=== PATIENT | male | born 1945 | race Caucasian/White ===

== ENCOUNTER 2016-12-30 07:08 | Day surgery (SDC) | payer MEDICARE ==
[~2016-12-30] VITALS: Ht 177.8 cm; Wt 86.6 kg
[~2016-12-30 07:08] MED LIST: ASPI325T32 PO; HYDR25TA4 PO; LIP40 PO; LOSA100T29 PO; Lactated Ringer's 1,000 ML IV ONE; METO-274 PO; SILO8CAP PO
[2016-12-30] MEDS ORDERED: Propofol 10,000 mCg/mL 20 mL Inj ONE (07:09)
[2016-12-30] MEDS ORDERED: Lidocaine PF 1% 30 mL Inj ONE (07:09)
[2016-12-30 07:33] VITALS: BP 152/86; PULSE 60; RESP 14; O2SAT 97
[2016-12-30] MEDS ORDERED: OMEP20TA24 PO (07:39)
[2016-12-30] MEDS ORDERED: Ondansetron 2 mg/mL 2 mL Inj IVPUSH PRN (07:55)
[2016-12-30] MEDS ORDERED: MetoCLOpramide 5 mg/mL 2 mL Inj IVPUSH PRN (07:55)
[2016-12-30] MEDS ORDERED: Lactated Ringer's 1,000 ML IV SCH (07:55)
--- NOTE | 2016-12-30 07:55 | PCM.HPANE ---
Patient Data Date of Service: Dec 30, 2016 Surgeon Admitting Provider: Attending Provider:Sushant Drummond MD Primary Care Physician:Fabian Pham MD Other Provider:Megan Hernandez Anesthesia Reason for Visit Fhx Colon Cancer Ht/WT & BMI Height (Feet): 5 Height (Inches): 10 Weight (Kilograms): 86.64 Body Mass Index 27.00 Allergies Coded Allergies: No Known Allergies (Unverified , 12/29/16) Past Anesthesia History Anesthesia History: Denies:: Abnormal Airway, Anesthesia Reactions, Difficult Intubation, Fam Anesthesia Reaction, Fam Malignant Hypertherm, Malignant Hyperthermia Diabetes History Hx Diabetes?: No MRSA MRSA: No Medications Blood Thinner: Aspirin Last Dose Blood Thinner: Dec 29, 2016 Home Meds Incl Beta Ricardo: Yes Date Beta Ricardo Taken: Dec 30, 2016 Time Beta Ricardo Taken: 0600 Reported Medications Omeprazole Magnesium (Prilosec Otc)20 Mg Tablet.dr20 Mg PO DAILY #1 PKG Ref 0 12/30/16 Silodosin (Rapaflo)8 Mg Capsule8 Mg PO DAILY 12/29/16 Metoprolol Succinate ER 100 Mg Tab.er.[id number] Mg PO DAILY Ref 0 12/29/16 Losartan Potassium 100 Mg Zqmosk834 Mg PO DAILY 12/29/16 Hydrochlorothiazide 25 Mg Hopktq25 Mg PO DAILY 30 Days Ref 0 12/29/16 Atorvastatin (Lipitor)40 Mg Bgruly23 Mg PO DAILY Ref 0 12/29/16 Aspirin 325 Mg Nkyjrn820 Mg PO DAILY #1 BOTTLE 12/29/16 History History of ENT Problems?: No HEENT History: Positive for:: Hearing Problem (TINNITIS BILAT) Denies:: Abnormal Airway Difficult Intubation Dysphagia Hx of Heart Problems?: Yes Cardiovascular History: Positive for:: Chest Pain (ANG[place] at age 51, CABG) Denies:: AICD Atrial Fibrillation Hypertension Pacemaker Valvular Heart Disease Hx of Respiratory Problem?: No Respiratory History: Denies:: Tuberculosis Hx Neurologic Problems?: No Neurological History: Denies:: CVA Hx of GI Problems?: Yes Gastrointestinal History: Positive for:: Gastroesphageal Reflux ( INTERMITTENTLY) Denies:: Cirrhosis Diverticulitis Gall Bladder Disease Hiatal Hernia Liver Disease Rectal Bleeding Hx of Problems?: No HX of Peritoneal Dialysis: No Hx Musculoskeletal Problems?: No Hx of Psycho/Social Problems?: No Hx Surgeries?: Yes (CABG) Hx Any Other Health Problems?: No Hx Diabetes: No Hx Alcohol Use: YesHx Substance Use: NoHave You Smoked inLast 12 mo: No Stop/Bang Treated for Sleep Apnea?: No Do You Have a CPAP Machine?: No S-Snoring: Do You Snore Loudly: Yes T-Tired: feel tired, fatigued: No O-Obsered: Observed not breath: No P-Blood Pressure: treated: No B- Body Mass Index > 35 kg/m2: No N- Neck Large Circumference: No G- Gender Male: Yes OLIVIA Risk Assessment: Low Risk, <3 Yes Risk Assessment Category Category 1A: Patient has history of documented sleep apnea, and HAS NOT received any narcotic, sedative or anesthesia administration during this stay. Category 1B: Patient has history of documented sleep apnea, and HAS received any narcotic , sedative or anesthesia administration during this stay Category 2: Patient has SUSPECTED Obstructive Sleep Apnea, and HAS received any narcotic , sedative or anesthesia administration during this stay. Category 3: Patient has SUSPECTED Obstructive Sleep Apnea and HAS NOT received narcotic, sedative or anesthesia administration during this stay. Category 4: Outpatient in Procedural Areas with known sleep apnea or who screen positive for High Risk via the STOP/BANG questionnaire. Exam Exam Vital Signs Vital Signs Date Time Temp Pulse Resp B/P Pulse Ox O2 Delivery O2 Flow Rate FiO2 12/30/16 07:33 36.7 60 14 152/86 97 Room Air General Appearance: Alert, Oriented X3, Cooperative HEENT/AIRWAY: MP 2, Neck Movement (Full), Mouth Opening (Wide) Lungs: Clear to Auscultation, Normal Air Movement Heart: Regular Rate/Rhythm, Normal S1, Normal S2 Plan Impression Patient chart reviewed, patient interviewed and anesthestic plan with risks, benefits, and alternatives discussed, and informed consent obtained. NPO Status: > 8 hours ASA Physical Status: ASA2 Mod Systemic Disease Anesthetic Plan: MAC Bene/Risks/Altern/Consents: Yes HP Complete Prior to Induction: Yes Trevor Khan MD Dec 30, 2016 07:46
[2016-12-30 08:29] VITALS: BP 101/53; PULSE 53; RESP 16; O2SAT 94
--- NOTE | 2016-12-30 08:38 | PCM.ANEP1 ---
Post Anesthesia Phase 1 PACU Phase 1 Assessment Date of Service: Dec 30, 2016 Vital Signs Vital Signs Date Time Temp Pulse Resp B/P Pulse Ox O2 Delivery O2 Flow Rate FiO2 12/30/16 08:29 36.0 53 16 101/53 94 Room Air 12/30/16 07:33 36.7 60 14 152/86 97 Room Air Anesthetic Administered: MAC Level of Alertness: Sleeping, hard to arouse JULIO's with Equal Strength: Yes Pain: No Oxygen Delivery: Room Air Lungs: Normal Air Movement Trevor Khan MD Dec 30, 2016 08:38
[2016-12-30 08:39] VITALS: BP 113/60; PULSE 58; RESP 16; O2SAT 98
[2016-12-30 08:49] VITALS: BP 122/77; PULSE 59; RESP 16; O2SAT 95
--- NOTE | 2016-12-30 08:50 | PCM.ANEP2 ---
Post Anesthesia Evaluation ASA/CMS Post Anesthesia Date of Service: Dec 30, 2016 VS in Patient's Normal Range?: Yes Resp Stable; Airway Patent?: Yes CV Function & Hydration Stable: Yes Mental Status Recovered?: Yes Pain control Satisfactory?: Yes N/V Control Satisfactory?: Yes Trevor Khan MD Dec 30, 2016 08:50
--- NOTE | 2016-12-30 18:25 | ENDO ---
[address] [address] ENDOSCOPY PROCEDURE PATIENT: Leighton VALLEJO : 1945 MR#: [id number] ADMIT: 12/30/2016 JOB ID: [id number] PRIMARY PROVIDER: Fabian Pham MD. PROCEDURE: Colonoscopy. INDICATIONS: A 71-year-old male with family history of colon cancer in his dad. EQUIPMENT: PCF-H180AL. SEDATION: Monitored anesthesia as provided by Dr. Trevor Khan. COMPLICATIONS: None identified. BOWEL PREPARATION: Fair, adequate exam. PROCEDURE INFORMATION: After the risks and benefits were explained, written and verbal informed consent was obtained, the patient was brought into the endoscopy suite and placed into the left lateral decubitus position. Sedation was achieved using the above-stated medications with the INCOMPLETE: Dictation ends here.
--- NOTE | 2016-12-30 18:34 | ENDO ---
[address] [address] ENDOSCOPY PROCEDURE PATIENT: Leighton VALLEJO : 1945 MR#: [id number] ADMIT: 12/30/2016 JOB ID: [id number] PRIMARY PROVIDER: Fabian Pham MD. PROCEDURE: Colonoscopy. INDICATIONS: A 71-year-old male with a family history of colon cancer in his dad. EQUIPMENT: PCF-H180AL. SEDATION: Monitored anesthesia as provided by Dr. Trevor Khan. COMPLICATIONS: None identified. BOWEL PREPARATION: Fair, adequate exam. PROCEDURE INFORMATION: After the risks and benefits were explained, written and verbal informed consent was obtained, the patient was brought into the endoscopy suite and placed into the left lateral decubitus position. Sedation was achieved as above. A digital rectal examination accomplished. No significant pathology appreciated. The scope was introduced into the rectum and advanced to the cecum as identified by the appendiceal orifice and ileocecal valve. The scope was slowly withdrawn to carefully examine the mucosa for any defects or lesions. Multiple direct views were made through the dentate line for exclusion of pathology. The colon was decompressed. The scope removed from the patient who tolerated the procedure well. FINDINGS: No significant polyps, mass lesions, or inflammatory features identified throughout. There were a few nonbleeding small AVMs seen in the right colon. Mild internal hemorrhoids were noted on direct views through the anal canal. ENDOSCOPIC DIAGNOSES: 1. Mild internal hemorrhoids. 2. Nonbleeding small right colon arteriovenous malformations. RECOMMENDATIONS: Considering family history, repeat colonoscopy in five years.
== END 2016-12-30 23:59 | disposition home or self-care (01) ==
LOC: END 07:08
PROVIDERS: ATTEND Internal Medicine Gastroenterology
DX: Z12.11 Encounter for screening for malignant neoplasm of colon (principal); Z80.0 Family history of malignant neoplasm of digestive organs; K64.8 Other hemorrhoids; Q27.33 Arteriovenous malformation of digestive system vessel; I25.10 Atherosclerotic heart disease of native coronary artery without angina pectoris; I10 Essential (primary) hypertension; E78.5 Hyperlipidemia, unspecified; E78.00 Pure hypercholesterolemia, unspecified; K21.9 Gastro-esophageal reflux disease without esophagitis; Z95.1 Presence of aortocoronary bypass graft; Z79.82 Long term (current) use of aspirin